=== PATIENT | female | born 1980 | race Caucasian/White ===

== ENCOUNTER 2020-02-14 17:32 | Outpatient (REF) | payer MEDICAID, SELFPAY | END 2020-02-14 17:33 | disposition home or self-care (01) | LOC: HO.LAB 17:32 | PROVIDERS: PCP Registered Nurse; Visit Provider Internal Medicine | DX: Z20.828 Contact with and (suspected) exposure to other viral communicable diseases (principal) | CPT/HCPCS: C9803; U0003 ==

== ENCOUNTER → 2020-06-17 10:48 | Outpatient (BNVA) | payer MEDICAID, SELFPAY | PROVIDERS: Visit Provider Advanced Practice Midwife ==

== ENCOUNTER 2020-07-02 13:26 | Emergency (ER) | payer MEDICAID, SELFPAY ==
--- NOTE | ~2020-07-02 | CT_ITS ---
EXAMINATION: CT ABDOMEN AND PELVIS WITHOUT CONTRAST CLINICAL INFORMATION: Left flank pain COMPARISON: Previous CT of the abdomen and pelvis June 2015 TECHNIQUE: Multidetector volumetric imaging was performed from the superior aspect of the liver through the pubic symphysis. Sagittal and coronal reformatted images were obtained on the technologist's workstation. This CT examination was performed using dose optimization techniques as appropriate, variously including the following: *Automated exposure control *Adjustment of mA and/or kV according to patient size (this includes techniques or standardized protocols for targeted exams where dose is matched to indication/reason for exam; i.e. extremities or head) *Use of iterative reconstruction technique DLP: 311 mGy-cm FINDINGS: LUNG BASES: The visualized lung bases are unremarkable. LIVER, GALLBLADDER, AND BILIARY TREE: The liver is normal in size, shape, and attenuation. No focal hepatic lesion or biliary ductal dilatation is present. The gallbladder is unremarkable with no evidence of radiopaque gallstones, gallbladder wall thickening, or obvious pericholecystic inflammatory changes. PANCREAS: Unremarkable. SPLEEN: Unremarkable. ADRENAL GLANDS: Unremarkable. KIDNEYS AND URETERS: The kidneys are normal in size, shape, and attenuation. No hydronephrosis, hydroureter, or calculi seen. No perinephric stranding. BLADDER: Unremarkable. GASTROINTESTINAL TRACT: The cecum is located in the right pelvis. The small and large bowel are otherwise unremarkable. The appendix is unremarkable. The stomach is unremarkable. ABDOMINAL WALL: There is a small umbilical hernia containing fat. There are postsurgical changes to the lower abdominal wall. LYMPH NODES: Normal. VASCULAR: Unremarkable. PELVIC VISCERA: The uterus has been removed. There is a 4.8 x 4.7 x 5 cm slightly complex left ovarian cyst with septation. This is new from 2016 exam. This probably represents a left ovarian cyst. OSSEOUS STRUCTURES: Unremarkable. CT/CT abdomen pelvis wo con IMPRESSION: 4.7 x 4.8 x 5 cm slightly complex left ovarian cyst. Normal-appearing kidneys. No stone or hydronephrosis.
[2020-07-02 13:49] VITALS: BP 110/61; PULSE 75; RESP 18; TEMP 37.2; O2SAT 97; BMI 20.5
[2020-07-02 14:12] LABS: Glucose Urine UA NEG (NEG); Leukocyte Esterase Urine NEG (NEG); Nitrite Urine NEG (NEG); Specific Gravity - Urine 1.025 (1.005-1.025); Urine Blood 1+ (NEG); Urine Ketones NEG (NEG); Urine Protein NEG (NEG-TRACE)
[2020-07-02 14:15] LABS: Appearance Urine CLEAR; Color Urine YELLOW
[2020-07-02 14:26] LABS: Bacteria Urine TRACE /LPF; Mucus Urine TRACE /LPF; RBC Urine 0-2 /HPF (0); Squamous Epithelial Cell Urine TRACE /LPF; WBC Urine 0-2 /HPF (0-4)
[2020-07-02 15:19] LABS: MANUAL DIFF FLAG NO
[2020-07-02 15:22] LABS: Basophils Absolute Auto 0.1 X10*3/uL (0.0-0.2); Basophils Percent Auto 0.6 % (0-2); Eosinophils Absolute Auto 0.4 X10*3/uL (0.0-0.4); Eosinophils Percent Auto 4.5 % (0-4); Hematocrit 40.4 % (37-47); Imm Gran Abs Auto 0.02 X10*3/uL (0.00-0.03); Imm Gran Pct Auto 0.3 % (0.0-0.4); Lymphocytes Absolute Auto 2.3 X10*3/uL (1.2-4.9); Lymphocytes Percent Auto 29.9 % (20-40); Mean Corpuscular HGB Conc 32.2 g/dl (31.0-35.0); Mean Corpuscular Hemoglobin 26.9 pg (27.0-33.0); Mean Corpuscular Volume 83.5 fL (80-98); Mean Platelet Volume 9.2 fL (9.4-12.3); Monocytes Absolute Auto 0.5 X10*3/uL (0.1-1.2); Monocytes Percent Auto 6.3 % (2-11); Neutrophils Absolute Auto 4.5 X10*3/uL (2.0-8.3); Neutrophils Percent Auto 58.4 % (45-73); Platelet Count 313 X10*3/uL (160-400); Red Blood Count 4.84 X10*6/uL (4.20-5.50); Red Cell Distribution Width 12.9 % (11.0-16.0); White Blood Count 7.8 X10*3/uL (4.8-10.8)
[2020-07-02 15:49] LABS: Anion Gap 13 (12-20); Blood Urea Nitrogen 11 mg/dL (9-16); Calcium 9.4 mg/dL (8.4-10.2); Carbon Dioxide 27 mmol/L (22-29); Chloride 102 mmol/L (96-108); Creatinine Clr Calc Pharmacy 77.9; Estimated Glomerular Filt Rate > 60; Glucose Random 86 mg/dL (60-115); Potassium 4.2 mmol/L (3.3-5.1); Sodium 138 mmol/L (135-145)
[2020-07-02 16:00] VITALS: BP 97/48; PULSE 72; RESP 18; O2SAT 99
--- NOTE | 2020-07-02 16:08 | ED.FEMALEGU ---
HPI - Female Genitourinary General Chief complaint: Urogenital-Female Stated complaint: abd pain Time Seen by Provider: 07/02/20 16:08 Source: patient Mode of arrival: ambulatory Limitations: no limitations History of Present Illness HPI Narrative: Pelvic pain with pain to left flank, urinary frequency. White discharge a week ago. No recent abx, patient has had recent yeast infections. Patient has a history of hysterectomy and right oophorectomy. MD elicited complaint: dysuria, UTI and flank pain Onset (ago): day(s) Severity: mild Quality of pain: cramping Consistency: intermittent Vaginal discharge: none Vaginal bleeding: none Urinary symptoms: Dysuria, Urgency and Frequency Related Data Previous Rx's Medication Instructions Recorded naproxen [Naprosyn] 500 mg PO BID #20 tab 07/02/20 Allergies Allergy/AdvReac Type Severity Reaction Status Date / Time morphine [MORPHINE] Allergy Unknown HIVES Verified 06/17/20 11:13 Review of Systems Constitutional: Constitutional: Reports no additional constitutional complaints Eyes: Eyes: Reports no additional eye complaints ENT: Denies dizziness Cardiovascular: Cardiovascular: Reports no additional cardiovascular complaints Respiratory: Respiratory: Reports as per HPI Gastrointestinal: Gastrointestinal: Reports no additional gastrointestinal complaints Genitourinary: Genitourinary: Reports no additional female genitourinary complaints Musculoskeletal: Musculoskeletal: Reports no additional musculoskeletal complaints Integumentary/Breasts: Skin/Breast: Denies rash Neurologic: Reports system reviewed and no additional complaints, except as documented, Denies dizziness and Denies Sensory deficit (Neuro) Psychiatric: Psychiatric: Denies anxiety PMFSH Past Medical History Medical History Abnormal Pap smear of cervix History of anxiety Surgical History History of total abdominal hysterectomy Hx of section Family History Family History Maternal Grandfather Colon cancer Social History Social History Alcohol intake: never Smoking Status: Current every day smoker Cigarettes Per Day: 4 Smoked in Last 30 Days: No Use of substances other than those prescribed or required for medical reasons: No Any prior treatment program specific to substance use: No Advance Directives: No Advance Directives Information Provided: Yes Physical Exam Vital Signs: Vital Signs: Last Vital Signs Temp 99.0 F 07/02/20 13:49 Pulse 72 07/02/20 17:40 Resp 16 07/02/20 17:40 BP 97/48 L 07/02/20 17:40 Pulse Ox 100 07/02/20 17:40 Body Mass Index 20.5 Const: General: healthy appearing Nutritional Appearance: average body habitus Orientation/consciousness: oriented to person and patient oriented x3 Limitations: no limitations HENMT: Head: Yes normal to inspection Ears: external ears normal General nose exam: Normal external nose present Mouth: Normal oral and palatal mucosa present and oropharynx normal Throat: Yes posterior oropharynx normal Eyes: General: appearance normal, both eyes and all related structures Neck: Other: supple Neck: Yes normal visual inspection Chest: Chest palpation & inspection: normal inspection of the chest Resp: Auscultation: clear to auscultation bilaterally Cardio: Jugular venous distension: no JVD Rate: regular rate Rhythm: regular rhythm Heart sounds: S1 normal heart sound present and S2 normal heart sound present GI: Other: minor left lower abdominal pain Inspection: Yes normal to inspection Palpation (GI): Soft to palpation and No hepatosplenomegaly present Auscultation: normal bowel sounds Back/Spine/Pelvis: Other: left CVAT tenderness Skin: General skin exam: no rashes or lesions noted Neuro: General: oriented to person and patient oriented x3 Cranial nerves: Yes CN's II-XII intact bilaterally Motor exam (neuro): 5/5 motor strength present throughout Sensory Exam: No Sensory deficit (Neuro) Extrem: General: Yes normal to inspection Psych: Appearance: grossly normal Course Course Course Narrative: Patient with complex left ovarian cyst will refer to her apartment rental clerk. MDM - Female Genitourinary MDM Narrative Medical decision making narrative: renal colic also considered. UA essentially normal, however CT abd/pelvis revealed complex left ovarian cyst. Differential Diagnosis Differential diagnosis: Likely urinary tract infection, ovarian cyst and cystitis Lab Data Result diagrams: 07/02/20 15:14 07/02/20 15:14 Labs: Lab Results 07/02/20 07/02/20 07/02/20 Range/Units 14:01 14:01 15:14 WBC 7.8 (4.8-10.8) X10*3/uL RBC 4.84 (4.20-5.50) X10*6/uL Hgb 13.0 (12.0-16.0) g/dl Hct 40.4 (37-47) % MCV 83.5 (80-98) fL MCH 26.9 L (27.0-33.0) pg MCHC 32.2 (31.0-35.0) g/dl RDW 12.9 (11.0-16.0) % Plt Count 313 (160-400) X10*3/uL MPV 9.2 L (9.4-12.3) fL Immature Gran % (Auto) 0.3 (0.0-0.4) % Neut % (Auto) 58.4 (45-73) % Lymph % (Auto) 29.9 (20-40) % [place] % (Auto) 6.3 (2-11) % Eos % (Auto) 4.5 H (0-4) % Baso % (Auto) 0.6 (0-2) % Lymph # (Auto) 2.3 (1.2-4.9) X10*3/uL [place] # (Auto) 0.5 (0.1-1.2) X10*3/uL Eos # (Auto) 0.4 (0.0-0.4) X10*3/uL Baso # (Auto) 0.1 (0.0-0.2) X10*3/uL Abs Immat Gran (auto) 0.02 (0.00-0.03) X10*3/uL Absolute Neuts (auto) 4.5 (2.0-8.3) X10*3/uL Absolute Nucleated RBC 0.000 (0.0-0.012) X10*3/uL Nucleated RBC % (auto) 0.0 (0.0-0.2) /100WBC Sodium (135-145) mmol/L Potassium (3.3-5.1) mmol/L Chloride (96-108) mmol/L Carbon Dioxide (22-29) mmol/L Anion Gap (12-20) BUN (9-16) mg/dL Creatinine (0.5-1.4) mg/dL Estim Creat Clear Calc Estimated GFR Random Glucose (60-115) mg/dL Calcium (8.4-10.2) mg/dL Urine Color YELLOW Urine Appearance CLEAR Urine pH 6.0 (5.0-8.0) Ur Specific Sulphur 1.025 (1.005-1.025) Urine Protein NEG (NEG-TRACE) MG/DL Urine Glucose (UA) NEG (NEG) MG/DL Urine Ketones NEG (NEG) MG/DL Urine Blood 1+ H (NEG) Urine Nitrite NEG (NEG) Ur Leukocyte Esterase NEG (NEG) Urine RBC 0-2 (0) /HPF Urine WBC 0-2 (0-4) /HPF Ur Squamous Epith Cells TRACE /LPF Urine Bacteria TRACE /LPF Urine Mucus TRACE /LPF Urine Test NEGATIVE (NEGATIVE) 07/02/20 Range/Units 15:14 WBC (4.8-10.8) X10*3/uL RBC (4.20-5.50) X10*6/uL Hgb (12.0-16.0) g/dl Hct (37-47) % MCV (80-98) fL MCH (27.0-33.0) pg MCHC (31.0-35.0) g/dl RDW (11.0-16.0) % Plt Count (160-400) X10*3/uL MPV (9.4-12.3) fL Immature Gran % (Auto) (0.0-0.4) % Neut % (Auto) (45-73) % Lymph % (Auto) (20-40) % [place] % (Auto) (2-11) % Eos % (Auto) (0-4) % Baso % (Auto) (0-2) % Lymph # (Auto) (1.2-4.9) X10*3/uL [place] # (Auto) (0.1-1.2) X10*3/uL Eos # (Auto) (0.0-0.4) X10*3/uL Baso # (Auto) (0.0-0.2) X10*3/uL Abs Immat Gran (auto) (0.00-0.03) X10*3/uL Absolute Neuts (auto) (2.0-8.3) X10*3/uL Absolute Nucleated RBC (0.0-0.012) X10*3/uL Nucleated RBC % (auto) (0.0-0.2) /100WBC Sodium 138 (135-145) mmol/L Potassium 4.2 (3.3-5.1) mmol/L Chloride 102 (96-108) mmol/L Carbon Dioxide 27 (22-29) mmol/L Anion Gap 13 (12-20) BUN 11 (9-16) mg/dL Creatinine 0.71 (0.5-1.4) mg/dL Estim Creat Clear Calc 77.9 Estimated GFR > 60 Random Glucose 86 (60-115) mg/dL Calcium 9.4 (8.4-10.2) mg/dL Urine Color Urine Appearance Urine pH (5.0-8.0) Ur Specific Sulph[place] (1.005-1.025) Urine Protein (NEG-TRACE) MG/DL Urine Glucose (UA) (NEG) MG/DL Urine Ketones (NEG) MG/DL Urine Blood (NEG) Urine Nitrite (NEG) Ur Leukocyte Esterase (NEG) Urine RBC (0) /HPF Urine WBC (0-4) /HPF Ur Squamous Epith Cells /LPF Urine Bacteria /LPF Urine Mucus /LPF Urine Test (NEGATIVE) Imaging Data CT scan - abdomen: Radiologist's impression: complex ovarian cyst Discharge Plan Discharge Clinical Impression: Complex cyst of left ovary Patient Disposition: Home, Self-Care Instructions: Ovarian Cyst (ED) Prescriptions: New naproxen [Naprosyn] 500 mg tablet 500 mg PO BID Qty: 20 RF: 0 Referrals: Physician,Unknown [Physician] - 2 days (must see your apartment rental clerk this week for ovarian cyst)
[2020-07-02 16:16] LABS: UPreg QC Valid YES; Urine Pregnancy NEGATIVE (NEGATIVE)
[2020-07-02] MEDS: Ketorolac Tromethamine 60 MG/2 ML VIAL IM (16:33)
[2020-07-02 17:40] VITALS: BP 97/48; PULSE 72; RESP 16; O2SAT 100
[2020-07-02] MEDS: Fluconazole 150 MG TABLET PO (18:42)
== END 2020-07-02 18:43 | disposition home or self-care (01) ==
PROVIDERS: Emergency Provider Emergency Medicine
DX: N83.292 Other ovarian cyst, left side (principal); R10.2 Pelvic and perineal pain
CPT/HCPCS: 36415; 74176; 80048; 81001; 81025; 85025; 96372; 99284; J1885

== ENCOUNTER 2021-01-11 16:47 | Emergency (ER) | payer MEDICAID, SELFPAY ==
--- NOTE | ~2021-01-11 | XR_ITS ---
EXAMINATION: XR CHEST CLINICAL INFORMATION: Shortness of breath. COMPARISON: No similar priors. TECHNIQUE: AP view of the chest was obtained. FINDINGS: No significant abnormality is noted involving the heart, lungs, mediastinum, bony thorax or soft tissues. XR/XR chest 1V IMPRESSION: No acute cardiopulmonary findings.
[2021-01-11 18:26] VITALS: BP 100/64; PULSE 75; RESP 16; TEMP 36.7; O2SAT 100
[2021-01-11 18:30] VITALS: BMI 26.2
--- NOTE | 2021-01-11 19:04 | ED_ITS ---
HPI - URI/Sore Throat General Chief Complaint: Upper Respiratory Symptoms Stated Complaint: covid + Time Seen by Provider: 01/11/21 19:04 History of Present Illness HPI Narrative: Patient is a 32-year-old female presented with coughing upper respiratory symptoms ongoing for about 10 days. She has tested positive for COVID approximately 7 days prior. She received her vaccine x2 over 2 weeks ago. Positive generalized malaise weakness. Patient from home. No significant past medical history. Related Data Previous Rx's Medication Instructions Recorded naproxen 500 mg tablet (Naprosyn) 500 mg PO BID #20 tab 07/02/20 Allergies Allergy/AdvReac Type Severity Reaction Status Date / Time morphine [MORPHINE] Allergy Unknown HIVES Verified 06/17/20 11:13 naproxen Allergy Unknown Verified 01/11/21 18:30 Review of Systems Review of Systems: Positive coughing upper respiratory symptoms Positive generalized malaise Yes all other systems are reviewed and are negative PMFSH Past Medical History Attestation statement: The following information was validated with the patient. Medical History Abnormal Pap smear of cervix History of anxiety Surgical History History of total abdominal hysterectomy Hx of section Family History Family History Maternal Grandfather Colon cancer Social History Social History Alcohol intake: never Cigarettes Per Day: 4 Advance Directives: No Advance Directives Information Provided: No Physical Exam Vital Signs: Vital Signs: Last Vital Signs Temp 98.1 F 01/11/21 18:26 Pulse 75 01/11/21 18:26 Resp 16 01/11/21 18:26 BP 100/64 01/11/21 18:26 Pulse Ox 100 01/11/21 18:26 Body Mass Index 26.2 Appearance: Alert. Oriented X3. No acute distress. Eyes: Pupils equal, round and reactive to light. ENT: Pharynx normal. Neck: Normal inspection. Neck supple. No lymph nodes noted. No crepitus CVS: Normal heart rate and rhythm. Pulses normal. Normal S1 and S2 Respiratory: No respiratory distress. Breath sounds normal. No Wheezing. No rales Abdomen: Soft and nontender. No rigidity. No distention. good BS x4 Skin: Skin warm and dry. Normal skin color. Normal skin turgor. Extremities: No lower extremity edema. Neurovascular intact to all extremities. No Lacerations. No Rash Neuro: Oriented X 3. No motor deficit. No sensory deficit. Moving all extermities. No slurred speech MDM - URI/Sore Throat MDM Narrative Medical decision making narrative: Chest x-ray was negative O2 sat 100% on room air. No distress. Patient tested positive COVID explained to patient in need for follow-up on an outpatient basis. Home quarantine until symptoms resolve. She is currently in stable condition with discharge home. Medical Records Attestation: I reviewed the patient's medical records. Discharge Plan Discharge Clinical Impression: COVID-19 Patient Disposition: Home, Self-Care Instructions: COVID-19 (Coronavirus Disease 2019) (ED) Additional Instructions: Home quarantine into all symptom has resolved. No fever for at least 24-48 hours per Prescriptions: No Action naproxen [Naprosyn] 500 mg tablet 500 mg PO BID Qty: 20 RF: 0 Referrals: [facility] [Primary Care Provider] - 2 days Print Language: Tajik
== END 2021-01-11 19:44 | disposition home or self-care (01) ==
PROVIDERS: Emergency Provider Emergency Medicine Emergency Medical Services
DX: U07.1 COVID-19 (principal); F17.210 Nicotine dependence, cigarettes, uncomplicated; Z71.6 Tobacco abuse counseling; Z79.899 Other long term (current) drug therapy
CPT/HCPCS: 71045; 99282; 99283

== ENCOUNTER 2021-01-29 11:35 | Emergency (ER) | payer MEDICAID, SELFPAY ==
[2021-01-29 13:53] VITALS: BP 130/68; PULSE 73; RESP 16; TEMP 36.8; O2SAT 98; BMI 26.2
--- NOTE | 2021-01-29 14:15 | ED_ITS ---
HPI - General Adult General Chief complaint: Upper Respiratory Symptoms Stated complaint: SOB/fatigue Time Seen by Provider: 01/29/21 14:15 Source: patient Limitations: no limitations History of Present Illness HPI narrative: Patient presents with sinus pressure congestion sore throat and slight cough over the past few days. Patient had COVID-19 approximately 1 month prior has systems negative x2 since. Patient has also been fully vaccinated for COVID-19. Sinus pressure congestion nasal discharge has been noted. Positive headache associated with symptoms. Pain 5/10. patient denies smoking history. No other complaints at this time . Related Data Previous Rx's Medication Instructions Recorded naproxen 500 mg tablet (Naprosyn) 500 mg PO BID #20 tab 07/02/20 azithromycin 250 mg tablet See Rx Instructions .ROUTE 01/29/21 (Zithromax) .COMPLEX #6 tab Allergies Allergy/AdvReac Type Severity Reaction Status Date / Time morphine [MORPHINE] Allergy Unknown HIVES Verified 06/17/20 11:13 naproxen Allergy Unknown Verified 01/11/21 18:30 Review of Systems Constitutional: Constitutional: Denies chills, Denies fever(s), Reports headache(s) and Denies weakness ENT: Reports headache(s), Reports nasal congestion, Reports nasal discharge and Reports sore throat Cardiovascular: Cardiovascular: Denies chest pain and Denies dyspnea Respiratory: Respiratory: Reports cough and Denies dyspnea Gastrointestinal: Gastrointestinal: Denies nausea and Denies vomiting Musculoskeletal: Musculoskeletal: Denies back pain Neurologic: Reports headache(s) and Denies weakness PMFSH Past Medical History Attestation statement: The following information was validated with the patient. Source: unable to obtain Medical History Abnormal Pap smear of cervix History of anxiety Surgical History History of total abdominal hysterectomy Hx of section Family History Family History Maternal Grandfather Colon cancer Social History Social History Alcohol intake: never Cigarettes Per Day: 4 Advance Directives: No Advance Directives Information Provided: No Patient : No Physical Exam Vital Signs: Vital Signs: Last Vital Signs Temp 98.3 F 01/29/21 13:53 Pulse 73 01/29/21 13:53 Resp 16 01/29/21 13:53 BP 130/68 01/29/21 13:53 Pulse Ox 98 01/29/21 13:53 Body Mass Index 26.2 vital signs have been reviewed as normal and appeared to be correct. Blood pressure normal. Heart rate normal. Respiration rate normal. Temperature normal. Oxygen saturation normal. Appearance: Alert. Oriented X3. No acute distress. Head: Normal external exam. Normocephalic. Atraumatic. Eyes: PERRLA. EOMI. Conjunctiva and sclera normal. Eyelids normal. ENT: Pharynx normal. Uvula midline. Moist mucous membranes. No trismus noted. No drooling noted. No muffled voice noted. No evidence of peritonsillar abscess. Sinus pressure discharge positive sinus tenderness. Neck: Soft full range of motion, no JVD CVS: Heart regular rate and rhythm no murmurs and rubs Respiratory: Breath sounds are clear to auscultation bilaterally. No accessory muscle use noted. Back: No CVA tenderness. Full range of motion noted. Skin: Skin warm and dry. Normal skin color. Normal skin turgor. No rashes/lesions/lacerations noted. Extremities: No lower extremity edema. Extremities exhibit normal range of motion. Extremities nontender. Neuro: Oriented X 3. No motor deficit. No sensory deficit. Reflexes normal. Course Course Course Narrative: Acute bronchitis Sinusitis Acute pharyngitis Peritonsillar abscess Viral syndrome Patient has had 2-COVID-19 tests since her diagnosis proximally 1 month ago patient is fully vaccinated this time symptoms consistent sinusitis positive sinus pressure and nasal discharge will treat accordingly Discharge Plan Discharge Clinical Impression: Sinusitis Patient Disposition: Home, Self-Care Instructions: Sinusitis (ED) Additional Instructions: Increase fluids rest Tylenol Motrin for fever or pain Antibiotics as directed. Symptoms are consistent with sinusitis Prescriptions: New azithromycin [Zithromax] 250 mg tablet See Rx Instructions .ROUTE .COMPLEX Qty: 6 RF: 0 No Action naproxen [Naprosyn] 500 mg tablet 500 mg PO BID Qty: 20 RF: 0 Print Language: [place]
== END 2021-01-29 15:13 | disposition home or self-care (01) ==
LOC: HO.ED 14:35
PROVIDERS: Emergency Provider Emergency Medicine Emergency Medical Services
DX: J32.9 Chronic sinusitis, unspecified (principal); R06.02 Shortness of breath; R50.9 Fever, unspecified; F17.210 Nicotine dependence, cigarettes, uncomplicated; Z71.6 Tobacco abuse counseling; Z79.899 Other long term (current) drug therapy
CPT/HCPCS: 99283

== ENCOUNTER 2021-02-03 12:54 | Outpatient (REF) | payer MEDICAID, SELFPAY ==
--- NOTE | ~2021-02-03 | XR_ITS ---
EXAMINATION: XR CHEST 2 VIEWS CLINICAL INFORMATION: Cough, shortness of breath and acute lower respiratory infection. COMPARISON: Prior chest radiographs dated 01/11/2021. TECHNIQUE: Frontal and lateral views of the chest were obtained. FINDINGS: The heart, great vessels, pulmonary vasculature and mediastinum are normal. The lungs show no focal infiltrate, effusion or pneumothorax. There is no acute osseous abnormality. XR/XR chest 2V IMPRESSION: No active cardiopulmonary disease.
== END 2021-02-03 12:55 | disposition home or self-care (01) ==
LOC: HO.XRAY 12:54
PROVIDERS: Absent Provider Registered Nurse; PCP Registered Nurse; Visit Provider Emergency Medicine
DX: J22 Unspecified acute lower respiratory infection (principal); R05.9 Cough, unspecified; R06.02 Shortness of breath
CPT/HCPCS: 71046

== ENCOUNTER 2021-02-22 22:21 | Emergency (ER) | payer MEDICAID, SELFPAY ==
--- NOTE | ~2021-02-22 | CT_ITS ---
EXAMINATION: CT CHEST WITH CONTRAST CLINICAL INFORMATION: Shortness of breath. History of Covid 19 COMPARISON: No prior chest CT. Radiograph 02/22/2021. TECHNIQUE: Multidetector volumetric CT imaging of the chest was obtained after the administration of 65 mL of Omnipaque 350 intravenous contrast without immediate adverse reactions. Axial MIP volume rendering provided. Sagittal and coronal reformatted images were obtained. This CT examination was performed using dose optimization techniques as appropriate, variously including the following: *Automated exposure control *Adjustment of mA and/or kV according to patient size (this includes techniques or standardized protocols for targeted exams where dose is matched to indication/reason for exam; i.e. extremities or head) *Use of iterative reconstruction technique DLP: 151 mGy-cm FINDINGS: LUNGS: The central airways are patent. Bronchial wall thickening. No dense consolidation. No pneumothorax. No suspicious pulmonary nodule identified. MEDIASTINUM: Normal heart size. No pericardial effusion. No mediastinal lymphadenopathy. The visualized thyroid gland is unremarkable. PLEURA: There is no pleural effusion. No pleural mass or thickening. AXILLA: No lymphadenopathy. UPPER ABDOMEN: Unremarkable OSSEOUS STRUCTURES: Unremarkable. CT/CT chest w con IMPRESSION: No consolidation. Bronchial wall thickening can be seen with a small airways process such as asthma or atypical/viral infection.
--- NOTE | ~2021-02-22 | XR_ITS ---
EXAMINATION: XR CHEST CLINICAL INFORMATION: Shortness of breath. COMPARISON: 02/03/2021 chest radiographs. TECHNIQUE: Frontal view of the chest was obtained. FINDINGS: No significant abnormality is noted involving the heart, lungs, mediastinum, bony thorax or soft tissues. XR/XR chest 1V IMPRESSION: No acute cardiopulmonary process.
--- NOTE | ~2021-02-22 | XR_ITS ---
EXAMINATION: XR CHEST CLINICAL INFORMATION: Shortness of breath COMPARISON: 02/22/2021 TECHNIQUE: Frontal view of the chest was obtained. FINDINGS: Cardiac leads overlie the chest. The lungs are well expanded. There is no focal consolidation, edema, or effusion. No pneumothorax. The cardiomediastinal silhouette is within normal limits. No acute osseous abnormality. XR/XR chest 1V IMPRESSION: Clear lungs.
[2021-02-22 22:24] VITALS: BP 116/68; PULSE 96; RESP 22; TEMP 36.8; O2SAT 97; BMI 21.9
[2021-02-22 23:14] LABS: Influenza A PCR NEGATIVE (Negative); Influenza B PCR NEGATIVE (Negative); Resp Syncy Virus RNA Qual PCR NEGATIVE (Negative); SARS COV2 PCR INHOUSE NEGATIVE (Negative)
--- NOTE | 2021-02-22 23:42 | ED.SOB ---
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 asthma. She has been provided an albuterol inhaler as well as a course of steroids twice and patient states that she really has not gotten any relief from this treatment plan. She states she continues to have cough with wheezing as well as feeling short of breath and sinus problems. She denies any fevers or chills but states she intermittently gets headache and that she has been coughing so much that her chest hurts. Patient is status post hysterectomy. Related Data Previous Rx's Medication Instructions Recorded naproxen 500 mg tablet (Naprosyn) 500 mg PO BID #20 tab 07/02/20 azithromycin 250 mg tablet See Rx Instructions .ROUTE 01/29/21 (Zithromax) .COMPLEX #6 tab benzonatate 100 mg capsule 100 mg PO TID PRN #10 cap 02/23/21 prednisone 20 mg tablet 40 mg PO DAILY 4 Days #8 tab 02/23/21 Allergies Allergy/AdvReac Type Severity Reaction Status Date / Time morphine [MORPHINE] Allergy Unknown HIVES Verified 06/17/20 11:13 naproxen Allergy Unknown Verified 01/11/21 18:30 Review of Systems Review of Systems: Pertinent positives and negatives as stated in HPI 10 point review of systems is otherwise negative. [facility] Past Medical History Source: nursing notes reviewed Medical History Abnormal Pap smear of cervix History of anxiety Surgical History History of total abdominal hysterectomy Hx of section Family History Family History Maternal Grandfather Colon cancer Social History Social History Alcohol intake: never Cigarettes Per Day: 4 Advance Directives: No Physical Exam Vital Signs: Vital Signs: Last Vital Signs Temp 98.3 F 02/22/21 22:24 Pulse 84 02/22/21 23:49 Resp 20 02/22/21 23:49 BP 120/73 02/22/21 23:49 Pulse Ox 98 02/22/21 23:49 Body Mass Index 21.9 VITAL SIGNS: Reviewed. GENERAL: Well developed, well nourished, in no acute distress. HEAD: Normocephalic/atraumatic EYES: PERRLA, EOMI EARS: Ext canals without abnormality, TMs non-bulging and non-erythematous NOSE: Nares patent bilateral OROPHARYNX: no oral lesions noted, posterior pharynx clear and non-erythematous without noted tonsillar enlargement/erythema/exudates NECK: Supple, no adenopathy LUNGS: Some difficulty with good inspiratory effort given cough, patient is tachypneic, with retractions and bilateral coarse breath sounds with mild expiratory wheeze. SpO2<97> CARDIOVASCULAR: Regular rate and rhythm without noted murmurs ABDOMEN: Soft, non-tender, non-distended with bowel sounds. SKIN: Inspection of the skin reveals no rashes NEUROLOGIC: Alert and oriented x 4. Course Course Course Narrative: 40-year-old female with history and clinical presentation suggestive of COVID-19 sequela of developing lung disease, however there is also a component of anxiety. Review of all investigations significant for eosinophilia -11.2 but otherwise no acute findings and this includes a CT scan of the chest with IV contrast. Although the CT scan does show thickening consistent with patient's current working diagnosis of asthma. On re-evaluation patient has had complete resolution of her wheezing, tachypnea after receiving 1 hour long albuterol treatment in conjunction with Benadryl and steroids. After noting the eosinophilia, suspect that the Benadryl may have been the major factor in resolution. Patient was instructed to continue using her albuterol inhaler every 4 hours, and that she would be provided with a prescription for steroids/Tessalon Perles and that she should take Benadryl at night before going to sleep. In addition, she should follow-up with her primary care provider in the morning for re-evaluation and further outpatient management. MDM - SOB/Dyspnea Lab Data Result diagrams: 02/23/21 00:01 02/23/21 00:01 Labs: Lab Results 02/22/21 02/23/21 02/23/21 Range/Units 22:31 00:01 00:01 WBC 8.5 (4.8-10.8) X10*3/uL RBC 4.81 (4.20-5.50) X10*6/uL Hgb 13.3 (12.0-16.0) g/dl Hct 40.4 (37.0-47.0) % MCV 84.0 (80.0-98.0) fL MCH 27.7 (27.0-33.0) pg MCHC 32.9 (31.0-35.0) g/dl RDW 13.2 (11.0-16.0) % Plt Count 324 (160-400) X10*3/uL MPV 9.2 L (9.4-12.3) fL Immature Gran % (Auto) 0.2 (0.0-0.4) % Neut % (Auto) 43.9 L (45-73) % Lymph % (Auto) 37.9 (20-40) % [place] % (Auto) 6.1 (2-11) % Eos % (Auto) 11.2 H (0-4) % Baso % (Auto) 0.7 (0-2) % Lymph # (Auto) 3.2 (1.2-4.9) X10*3/uL [place] # (Auto) 0.5 (0.1-1.2) X10*3/uL Eos # (Auto) 1.0 H (0.0-0.4) X10*3/uL Baso # (Auto) 0.1 (0.0-0.2) X10*3/uL Abs Immat Gran (auto) 0.02 (0.00-0.03) X10*3/uL Absolute Neuts (auto) 3.7 (2.0-8.3) x10*3/uL Absolute Nucleated RBC 0.000 (0.0-0.012) X10*3/uL Nucleated RBC % (auto) 0.0 (0.0-0.2) /100WBC D-Dimer NG/ML Coag Specimen Comment Sodium 141 (135-145) mmol/L Potassium 4.5 (3.3-5.1) mmol/L Chloride 107 (96-108) mmol/L Carbon Dioxide 27 (22-29) mmol/L Anion Gap 12 (12-20) BUN 15 (9-16) mg/dL Creatinine 0.79 (0.5-1.4) mg/dL Estim Creat Clear Calc 62.3 Estimated GFR > 60 Random Glucose 94 (60-115) mg/dL Calcium 9.1 (8.4-10.2) mg/dL Total Bilirubin 0.3 (0.0-1.0) mg/dL AST 23 (5-31) U/L ALT 36 H (0-31) U/L Alkaline Phosphatase 94 (39-117) U/L Total Protein 7.3 (6.5-8.0) g/dL Albumin 4.2 (3.5-5.0) g/dL Influenza Type A (PCR) NEGATIVE (Negative) Influenza Type B (PCR) NEGATIVE (Negative) RSV RNA Qual (PCR) NEGATIVE (Negative) SARS-CoV-2 RNA (RT-PCR) NEGATIVE (Negative) 02/23/21 Range/Units 00:01 WBC (4.8-10.8) X10*3/uL RBC (4.20-5.50) X10*6/uL Hgb (12.0-16.0) g/dl Hct (37.0-47.0) % MCV (80.0-98.0) fL MCH (27.0-33.0) pg MCHC (31.0-35.0) g/dl RDW (11.0-16.0) % Plt Count (160-400) X10*3/uL MPV (9.4-12.3) fL Immature Gran % (Auto) (0.0-0.4) % Neut % (Auto) (45-73) % Lymph % (Auto) (20-40) % [place] % (Auto) (2-11) % Eos % (Auto) (0-4) % Baso % (Auto) (0-2) % Lymph # (Auto) (1.2-4.9) X10*3/uL [place] # (Auto) (0.1-1.2) X10*3/uL Eos # (Auto) (0.0-0.4) X10*3/uL Baso # (Auto) (0.0-0.2) X10*3/uL Abs Immat Gran (auto) (0.00-0.03) X10*3/uL Absolute Neuts (auto) (2.0-8.3) x10*3/uL Absolute Nucleated RBC (0.0-0.012) X10*3/uL Nucleated RBC % (auto) (0.0-0.2) /100WBC D-Dimer 238 NG/ML Coag Specimen Comment DELAY Sodium (135-145) mmol/L Potassium (3.3-5.1) mmol/L Chloride (96-108) mmol/L Carbon Dioxide (22-29) mmol/L Anion Gap (12-20) BUN (9-16) mg/dL Creatinine (0.5-1.4) mg/dL Estim Creat Clear Calc Estimated GFR Random Glucose (60-115) mg/dL Calcium (8.4-10.2) mg/dL Total Bilirubin (0.0-1.0) mg/dL AST (5-31) U/L ALT (0-31) U/L Alkaline Phosphatase (39-117) U/L Total Protein (6.5-8.0) g/dL Albumin (3.5-5.0) g/dL Influenza Type A (PCR) (Negative) Influenza Type B (PCR) (Negative) RSV RNA Qual (PCR) (Negative) SARS-CoV-2 RNA (RT-PCR) (Negative) Discharge Plan Discharge Clinical Impression: Asthma exacerbation, Eosinophilia Patient Disposition: Home, Self-Care Instructions: Benzonatate (By mouth), Asthma (ED) Additional Instructions: 1. Contin?e usando liao inhalador de albuterol, 2 inhalaciones, cada 4 horas mientras est? despierto ari las pr?ximas 24 a 48 horas. 2. [place] Benadryl por la noche antes de irse a dormir hasta que lo eval?e liao proveedor de atenci?n primaria. 3. [place] liao Tessalon Perles para la tos seg?n las indicaciones y complete el ciclo de esteroides. 4. Realice un seguimiento con liao proveedor de atenci?n primaria por la ma?robert y analice la posibilidad de rusty derivaci?n adicional a un neum?logo. Regrese a la candice de emergencias si jenny s?ntomas empeoran. Prescriptions: New benzonatate 100 mg capsule 100 mg PO TID PRN (Reason: cough) Qty: 10 RF: 0 prednisone 20 mg tablet 40 mg PO DAILY 4 Days Qty: 8 RF: 0 No Action naproxen [Naprosyn] 500 mg tablet 500 mg PO BID Qty: 20 RF: 0 azithromycin [Zithromax] 250 mg tablet See Rx Instructions .ROUTE .COMPLEX Qty: 6 RF: 0 Referrals: Dawn Adhikari FNP [Primary Care Provider] - 2 days Print Language: Estonian
[2021-02-22 23:49] VITALS: BP 120/73; PULSE 84; RESP 20; O2SAT 98
[2021-02-23] MEDS: Albuterol Sulfate (0.083%) 2.5 MG/3 ML VIAL.NEB 10 MG INHALE (00:10)
[2021-02-23] MEDS: methylPREDNISolone Sod Succ 125 MG/2 ML VIAL IVPUSH (00:10)
[2021-02-23 00:14] LABS: MANUAL DIFF FLAG NO
[2021-02-23] MEDS: Acetaminophen 325 MG TABLET 975 MG PO (00:14)
[2021-02-23] MEDS: diphenhydrAMINE HCL 50 MG/ML VIAL 25 MG IVPUSH (00:15)
[2021-02-23] MEDS: Benzonatate 100 MG CAPSULE 200 MG PO (00:15)
[2021-02-23 00:16] LABS: Basophils Absolute Auto 0.1 X10*3/uL (0.0-0.2); Basophils Percent Auto 0.7 % (0-2); Eosinophils Percent Auto 11.2 % (0-4); Hematocrit 40.4 % (37.0-47.0); Hemoglobin 13.3 g/dl (12.0-16.0); Imm Gran Abs Auto 0.02 X10*3/uL (0.00-0.03); Imm Gran Pct Auto 0.2 % (0.0-0.4); Lymphocytes Absolute Auto 3.2 X10*3/uL (1.2-4.9); Lymphocytes Percent Auto 37.9 % (20-40); Mean Corpuscular HGB Conc 32.9 g/dl (31.0-35.0); Mean Corpuscular Hemoglobin 27.7 pg (27.0-33.0); Mean Platelet Volume 9.2 fL (9.4-12.3); Monocytes Absolute Auto 0.5 X10*3/uL (0.1-1.2); Monocytes Percent Auto 6.1 % (2-11); Neutrophils Absolute Auto 3.7 x10*3/uL (2.0-8.3); Neutrophils Percent Auto 43.9 % (45-73); Platelet Count 324 X10*3/uL (160-400); Red Blood Count 4.81 X10*6/uL (4.20-5.50); Red Cell Distribution Width 13.2 % (11.0-16.0); White Blood Count 8.5 X10*3/uL (4.8-10.8)
[2021-02-23 00:29] LABS: Delay - Coag DELAY
[2021-02-23 00:32] LABS: Alanine Aminotransferase 36 U/L (0-31); Albumin Level 4.2 g/dL (3.5-5.0); Alkaline Phosphatase 94 U/L (39-117); Anion Gap 12 (12-20); Aspartate Amino Transferase 23 U/L (5-31); Bilirubin Total 0.3 mg/dL (0.0-1.0); Blood Urea Nitrogen 15 mg/dL (9-16); Calcium 9.1 mg/dL (8.4-10.2); Carbon Dioxide 27 mmol/L (22-29); Chloride 107 mmol/L (96-108); Creatinine Clr Calc Pharmacy 62.3; Estimated Glomerular Filt Rate > 60; Glucose Random 94 mg/dL (60-115); Potassium 4.5 mmol/L (3.3-5.1); Sodium 141 mmol/L (135-145); Total Protein 7.3 g/dL (6.5-8.0)
[2021-02-23 00:42] LABS: D Dimer 238 NG/ML
--- NOTE | 2021-02-23 01:00 | PC.NURSE ---
PT transported for CT scan.
--- NOTE | 2021-02-23 01:11 | PC.NURSE ---
Pt off to CT on hospital bed. Pt requesting Zofran, states contrast makes her nauseated. agreeable. Pt medicated with Zofran per request.
[2021-02-23] MEDS: ondansetron HCL 4 MG/2 ML VIAL IVPUSH (01:13)
[2021-02-23] MEDS: iohexoL 350 MG/ML 100 ML INFUS..BTL 65 ML IV (01:22)
--- NOTE | 2021-02-23 02:05 | PC.NURSE ---
PT's daughter left contact info. Payton Correa [phone]
[2021-02-23 02:32] VITALS: BP 103/59; PULSE 110; RESP 20; O2SAT 96
== END 2021-02-23 03:02 | disposition home or self-care (01) ==
PROVIDERS: Emergency Provider Student in an Organized Health Care Education/Training Program; PCP Registered Nurse
DX: J45.901 Unspecified asthma with (acute) exacerbation (principal); D72.10 Eosinophilia, unspecified; Z86.16 Personal history of COVID-19; Z20.822 Contact with and (suspected) exposure to COVID-19
CPT/HCPCS: 0241U; 36415; 71045; 71260; 80053; 85025; 85379; 96374; 96375; 99284; J1200; J2405; J2930; Q9967

== ENCOUNTER 2021-03-18 08:09 | Outpatient (REF) | payer MEDICAID, SELFPAY ==
[2021-03-19 11:49] LABS: BV Int Neg Control Negative (Negative); BV Int Pos Control Positive (Positive)
== END 2021-03-18 08:10 | disposition home or self-care (01) ==
LOC: HO.LAB 08:09
PROVIDERS: PCP Registered Nurse; Visit Provider Advanced Practice Midwife
DX: N89.8 Other specified noninflammatory disorders of vagina (principal); N90.89 Other specified noninflammatory disorders of vulva and perineum; Z20.2 Contact with and (suspected) exposure to infections with a predominantly sexual mode of transmission; F17.210 Nicotine dependence, cigarettes, uncomplicated; Z88.6 Allergy status to analgesic agent; Z88.8 Allergy status to other drugs, medicaments and biological substances
CPT/HCPCS: 87480; 87510; 87660; 99212

== ENCOUNTER 2021-03-25 11:26 | Outpatient (REF) | payer MEDICAID, SELFPAY ==
--- NOTE | ~2021-03-25 | US_ITS ---
EXAMINATION: US ABDOMEN LIMITED CLINICAL INFORMATION: Abnormal levels of serum enzymes. COMPARISON: CT abdomen and pelvis 07/02/2020. TECHNIQUE: Real-time imaging of the right upper quadrant abdominal viscera. FINDINGS: PANCREAS: Normal. LIVER: The liver is normal in size. The liver contour is normal. No focal hepatic lesion. There is no intrahepatic biliary duct dilatation seen. GALLBLADDER: Normal. The gallbladder is physiologically distended without evidence of stones, sludge, polyps, wall thickening or pericholecystic fluid. COMMON BILE DUCT: Normal in caliber measuring 0.3 cm in diameter. RIGHT KIDNEY: Normal. No hydronephrosis. No renal calculi or focal parenchymal lesions. The kidney measures 9.2 cm in maximum dimension. FREE FLUID: None. US/US abdomen limited IMPRESSION: Unremarkable scan. No evidence for cholelithiasis or cholecystitis. No free fluid. Liver is felt to be within normal limits
== END 2021-03-25 11:27 | disposition home or self-care (01) ==
LOC: HO.US 11:26
PROVIDERS: PCP Registered Nurse; Visit Provider Registered Nurse
DX: R74.8 Abnormal levels of other serum enzymes (principal)
CPT/HCPCS: 76705

== ENCOUNTER 2021-06-07 14:10 | Emergency (ER) | payer OTHER, MEDICAID, SELFPAY ==
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
[2021-06-07 14:43] VITALS: BP 101/63; PULSE 102; RESP 16; TEMP 36.5; O2SAT 96; BMI 22.1
[2021-06-07] MEDS: Acetaminophen 325 MG TABLET 650 MG PO (14:56)
[2021-06-07 16:21] VITALS: BP 104/67; PULSE 88; RESP 18; TEMP 36.9; O2SAT 97
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
== END 2021-06-07 16:47 | disposition home or self-care (01) ==
PROVIDERS: Emergency Provider Emergency Medicine Emergency Medical Services; PCP Registered Nurse
DX: S46.912A Strain of unspecified muscle, fascia and tendon at shoulder and upper arm level, left arm, initial encounter (principal); M25.512 Pain in left shoulder; G44.309 Post-traumatic headache, unspecified, not intractable; V43.62XA Car passenger injured in collision with other type car in traffic accident, initial encounter; Y93.9 Activity, unspecified; Y92.410 Unspecified street and highway as the place of occurrence of the external cause; Y99.9 Unspecified external cause status; Z79.899 Other long term (current) drug therapy
CPT/HCPCS: 73030; 73060; 99284

== ENCOUNTER → 2021-06-24 10:28 | Outpatient (BNVA) | payer MEDICAID, SELFPAY | PROVIDERS: PCP Registered Nurse; Visit Provider Physician Assistant | DX: M75.22 Bicipital tendinitis, left shoulder (principal) | CPT/HCPCS: 20610; 99202; J1040 ==

== ENCOUNTER → 2021-08-05 09:42 | Outpatient (BNVA) | payer MEDICAID, SELFPAY | PROVIDERS: PCP Registered Nurse; Visit Provider Physician Assistant | DX: M75.22 Bicipital tendinitis, left shoulder (principal) | CPT/HCPCS: 99212 ==

== ENCOUNTER 2021-10-26 16:01 | Emergency (ER) | payer MEDICAID, SELFPAY ==
--- NOTE | ~2021-10-26 | US_ITS ---
EXAMINATION: US PELVIS CLINICAL INFORMATION: Left-sided pelvic pain COMPARISON: CT abdomen pelvis 07/02/2020 TECHNIQUE: Ultrasound of the pelvis is performed using both transabdominal and transvaginal transducers along with Doppler. Transvaginal imaging is performed due to inadequate visualization transabdominally. FINDINGS: Uterus: The uterus not seen and has apparently been removed Adnexa: Only the left ovary is seen. The right is not.. There is normal color flow to the left adnexa. There is no ovarian torsion. No free fluid is seen Left ovary measures 5.8 x 4.5 x 3.8 cm for a volume of 52 mL which includes 2 complex cysts measuring 2.8 x 2.4 x 2.7 cm and 3.3 x 2.7 x 2.8 cm. cm. At the time of the prior CT scan, a septated 4.8 x 4.7 x 5.0 cm cyst was seen. US/US pelvic ovarian doppler IMPRESSION: Multiple complex left ovarian cysts, the largest 3.3 cm. Follow-up study in 3 months is recommended.
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
[2021-10-26 16:20] VITALS: BP 112/68; PULSE 79; RESP 18; TEMP 36.7; O2SAT 99; BMI 21.2
[2021-10-26 18:02] LABS: MANUAL DIFF FLAG NO
[2021-10-26 18:03] LABS: Basophils Absolute Auto 0.1 X10*3/uL (0.0-0.2); Basophils Percent Auto 0.6 % (0-2); Eosinophils Absolute Auto 0.6 X10*3/uL (0.0-0.4); Eosinophils Percent Auto 6.4 % (0-4); Hemoglobin 12.3 g/dl (12.0-16.0); Imm Gran Abs Auto 0.03 X10*3/uL (0.00-0.03); Imm Gran Pct Auto 0.3 % (0.0-0.4); Lymphocytes Absolute Auto 2.5 X10*3/uL (1.2-4.9); Lymphocytes Percent Auto 29.2 % (20-40); Mean Corpuscular HGB Conc 31.5 g/dl (31.0-35.0); Mean Corpuscular Hemoglobin 26.2 pg (27.0-33.0); Mean Corpuscular Volume 83.2 fL (80.0-98.0); Mean Platelet Volume 9.3 fL (9.4-12.3); Monocytes Absolute Auto 0.5 X10*3/uL (0.1-1.2); Monocytes Percent Auto 5.7 % (2-11); Neutrophils Percent Auto 57.8 % (45-73); Platelet Count 284 X10*3/uL (160-400); Red Blood Count 4.69 X10*6/uL (4.20-5.50); Red Cell Distribution Width 12.9 % (11.0-16.0); White Blood Count 8.7 X10*3/uL (4.8-10.8)
[2021-10-26 18:24] LABS: Alanine Aminotransferase 10 U/L (0-31); Alkaline Phosphatase 76 U/L (39-117); Anion Gap 11 (12-20); Aspartate Amino Transferase 15 U/L (5-31); Bilirubin Total 0.2 mg/dL (0.0-1.0); Blood Urea Nitrogen 13 mg/dL (9-16); Calcium 9.1 mg/dL (8.4-10.2); Carbon Dioxide 27 mmol/L (22-29); Chloride 105 mmol/L (96-108); Creatinine Clr Calc Pharmacy 72.3; Estimated Glomerular Filt Rate > 60; Glucose Random 79 mg/dL (60-115); Potassium 3.9 mmol/L (3.3-5.1); Sodium 139 mmol/L (135-145); Total Protein 6.9 g/dL (6.5-8.0)
[2021-10-27 07:29] VITALS: BP 109/63; PULSE 80; RESP 16; TEMP 36.6; O2SAT 99
--- NOTE | 2021-10-27 07:40 | ED.ABDPAIN ---
HPI - Abdominal Pain General Chief Complaint: Abdominal Pain Stated Complaint: Ovarian pain Time Seen by Provider: 10/26/21 17:18 Source: patient Mode of arrival: ambulatory Limitations: no limitations History of Present Illness MD elicited complaint: abdominal pain Pertinent past history: other (ovarian cyst) Onset (ago): day(s) (2) Pain Consistency: constant Location: LLQ Severity: mild Quality: aching Radiation: none Migration to: no migration Exacerbating factors: movement Relieving factors: nothing Context: history of similar episodes (montly ovarian pain) Associated symptoms: denies other symptoms Treatments prior to arrival: other (tylenol yesterday no relief) Related Data Home Medications Medication Instructions Recorded Confirmed albuterol sulfate 90 mcg/actuation 2 puff PO Q6H PRN dyspnea 03/18/21 aerosol inhaler (ProAir HFA) Previous Rx's Medication Instructions Recorded naproxen 500 mg tablet (Naprosyn) 500 mg PO BID #20 tabs 07/02/20 azithromycin 250 mg tablet See Rx Instructions PO .COMPLEX #6 01/29/21 (Zithromax) tabs benzonatate 100 mg capsule 100 mg PO TID PRN cough #10 caps 02/23/21 prednisone 20 mg tablet 40 mg PO DAILY 4 days #8 tabs 02/23/21 fluconazole 150 mg tablet 150 mg PO ONCE PRN personal 1 day 03/18/21 (Diflucan) #1 tab metronidazole 0.75 % vaginal gel 1 appful vaginal BEDTIME 5 days 03/20/21 (Metrogel Vaginal) #70 grams fluconazole 150 mg tablet 150 mg PO DAILY 1 dose #1 tab 05/04/21 (Diflucan) ibuprofen 600 mg tablet 600 mg PO Q6H PRN pain #20 tabs 06/07/21 hydrocodone 5 mg-acetaminophen 325 1 tab PO Q6H PRN pain #10 tabs 10/27/21 mg tablet ondansetron 4 mg disintegrating 4 mg PO Q8H PRN nausea and 10/27/21 tablet vomiting #20 tabs Allergies Allergy/AdvReac Type Severity Reaction Status Date / Time morphine [MORPHINE] Allergy Unknown HIVES Verified 08/05/21 09:48 naproxen Allergy Unknown Verified 08/05/21 09:48 Review of Systems Review of Systems Constitutional : No Weight loss, No Fever, No Chills ENT/Mouth : No sore throat, No Rhinorrhea Eyes: No Swelling, No Redness Cardiovascular : No Chest Pain, No SOB, NoEdema Respiratory : No Cough, No Sputum, No Wheezing Gastrointestinal : no Nausea,no Vomiting,no Diarrhea, positive abdominal Pain, No Hematochezia, No Melena Genitourinary : No Dysuria, No Urinary Frequency, No Hematuria, No Urgency Musculoskeletal : No joint pain, No Myalgias, No Joint Swelling Skin : No Skin Lesions, No rash Neuro : No Weakness, No Numbness, No Dizziness, No Headache Psych : No Anxiety/Panic, No Depression Heme/Lymph: No Bruising, No Lymphadenopathy Endocrine : No Polyuria, No Polydipsia All other systems reviewed and are negative. [facility] Past Medical History Attestation statement: The following information was validated with the patient. 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 Oriented X3. No acute distress. Eyes: Pupils equal, round and reactive to light. ENT: Pharynx normal. Neck: Normal inspection. Neck supple. CVS: Normal heart rate and rhythm. Pulses normal. Respiratory: No respiratory distress. Breath sounds normal. Abdomen: Soft and mild LLQ pain no rebound or guarding Skin: Skin warm and dry. Normal skin color. Normal skin turgor. Extremities: No lower extremity edema. No calf ttp Neuro: Oriented X 3. No motor deficit. No sensory deficit. MDM - Abdominal Pain MDM Narrative Medical decision making narrative: 40 yo female with 2 days of LLQ pain hx of ovarian cysts hx of same pain monthly - no sigs of torsion on US, no rupture, VS and blood work stable. No other GI or symptoms. Has OB she can follow up with. Start on pain medications and refer for follow up. Abdominal exam no peritoneal signs Lab Data Result diagrams: 10/26/21 17:54 10/26/21 17:54 Labs: Lab Results 10/26/21 10/26/21 Range/Units 17:54 17:54 WBC 8.7 (4.8-10.8) X10*3/uL RBC 4.69 (4.20-5.50) X10*6/uL Hgb 12.3 (12.0-16.0) g/dl Hct 39.0 (37.0-47.0) % MCV 83.2 (80.0-98.0) fL MCH 26.2 L (27.0-33.0) pg MCHC 31.5 (31.0-35.0) g/dl RDW 12.9 (11.0-16.0) % Plt Count 284 (160-400) X10*3/uL MPV 9.3 L (9.4-12.3) fL Immature Gran % (Auto) 0.3 (0.0-0.4) % Neut % (Auto) 57.8 (45-73) % Lymph % (Auto) 29.2 (20-40) % [place] % (Auto) 5.7 (2-11) % Eos % (Auto) 6.4 H (0-4) % Baso % (Auto) 0.6 (0-2) % Lymph # (Auto) 2.5 (1.2-4.9) X10*3/uL [place] # (Auto) 0.5 (0.1-1.2) X10*3/uL Eos # (Auto) 0.6 H (0.0-0.4) X10*3/uL Baso # (Auto) 0.1 (0.0-0.2) X10*3/uL Abs Immat Gran (auto) 0.03 (0.00-0.03) X10*3/uL Absolute Neuts (auto) 5.0 (2.0-8.3) x10*3/uL Absolute Nucleated RBC 0.000 (0.0-0.012) X10*3/uL Nucleated RBC % (auto) 0.0 (0.0-0.2) /100WBC Sodium 139 (135-145) mmol/L Potassium 3.9 (3.3-5.1) mmol/L Chloride 105 (96-108) mmol/L Carbon Dioxide 27 (22-29) mmol/L Anion Gap 11 L (12-20) BUN 13 (9-16) mg/dL Creatinine 0.72 (0.5-1.4) mg/dL Estim Creat Clear Calc 72.3 Estimated GFR > 60 Random Glucose 79 (60-115) mg/dL Calcium 9.1 (8.4-10.2) mg/dL Total Bilirubin 0.2 (0.0-1.0) mg/dL AST 15 (5-31) U/L ALT 10 (0-31) U/L Alkaline Phosphatase 76 (39-117) U/L Total Protein 6.9 (6.5-8.0) g/dL Albumin 4.0 (3.5-5.0) g/dL Discharge Plan Discharge Clinical Impression: Ovarian cyst Qualifiers: Laterality: left Qualified Code(s): N83.202 - Unspecified ovarian cyst, left side Patient Disposition: Home, Self-Care Instructions: Ovarian Cyst (ED) Additional Instructions: return to ED for any worsening symptoms or concerns RECOMENDACIONES: ?tero: El ?tero no se ve y aparentemente molina sido extirpado. Anexos: Solo se ve el ovario junie. El derecho no es.. Hay color normal fluye hacia el anexo junie. No hay torsi?n ov?cony. No hay l?quido suni visto El ovario junie mide 5,8 x 4,5 x 3,8 cm para un volumen de 52 mL que incluye 2 quistes complejos de 2,8 x 2,4 x 2,7 cm y 3,3 x 2,7 x 2,8 cm. cm. En el momento de la tomograf?a computarizada anterior, un tabique de 4,8 x 4,7 x Se observ? un quiste de 5,0 cm. N.? DE PEDIDO: [id number] Doppler p?lvico-ov?rico EE. UU./EE. UU. IMPRESI?N: M?ltiples quistes complejos de ovario junie, el mayor de 3,3 cm. Hacer un seguimiento Se recomienda estudiar en 3 meses. Prescriptions: New hydrocodone-acetaminophen 5-325 mg tablet 1 tab PO Q6H PRN (Reason: pain) Qty: 10 0RF Rx Instructions: partial fill okay; Partial Fill upon patient request. ondansetron 4 mg tablet,disintegrating 4 mg PO Q8H PRN (Reason: nausea and vomiting) Qty: 20 0RF No Action metronidazole [Metrogel Vaginal] 0.75 % gel 1 appful vaginal BEDTIME 5 Days Qty: 70 0RF fluconazole [Diflucan] 150 mg tablet 150 mg PO DAILY Qty: 1 0RF Rx Instructions: administer on day 1 of therapy naproxen [Naprosyn] 500 mg tablet 500 mg PO BID Qty: 20 0RF benzonatate 100 mg capsule 100 mg PO TID PRN (Reason: cough) Qty: 10 0RF prednisone 20 mg tablet 40 mg PO DAILY 4 Days Qty: 8 0RF ibuprofen 600 mg tablet 600 mg PO Q6H PRN (Reason: pain) Qty: 20 0RF azithromycin [Zithromax] 250 mg tablet See Rx Instructions .ROUTE .COMPLEX Qty: 6 0RF Rx Instructions: take 500 mg today (day 1), then 250 mg for 4 days (days 2-5) albuterol sulfate [ProAir HFA] 90 mcg/actuation HFA aerosol inhaler 2 puff PO Q6H PRN (Reason: dyspnea) fluconazole [Diflucan] 150 mg tablet 150 mg PO ONCE PRN (Reason: personal) 1 Days Qty: 1 0RF Stand Alone Forms: Work/School Release Print Language: [place]
--- NOTE | 2021-10-27 08:12 | PC.NURSE ---
ATTEMPTING TO MEDICATE PATIENT AWAITING SOLAR SALES AMBASSADOR TO EXPLAIN MEDICATIONS RESULTING IN DELAY OF MEDICATION/DOCUMENTING
[2021-10-27] MEDS: Ibuprofen 400 MG TABLET PO (08:17)
[2021-10-27] MEDS: Ondansetron ODT 4 MG TAB.RAPDIS TRANSLINGU (08:17)
[2021-10-27] MEDS: HYDROcodone Bit/Acetam 5/325 TABLET 1 TAB PO (08:17)
== END 2021-10-27 09:25 | disposition home or self-care (01) ==
PROVIDERS: Emergency Provider Emergency Medicine; PCP Registered Nurse
DX: N83.202 Unspecified ovarian cyst, left side (principal); R10.32 Left lower quadrant pain; F17.200 Nicotine dependence, unspecified, uncomplicated
CPT/HCPCS: 36415; 76830; 76856; 80053; 85025; 93975; 99283; 99284

== ENCOUNTER 2021-11-16 12:19 | Outpatient (REF) | payer MEDICAID, SELFPAY ==
[2021-11-17 09:04] LABS: BV Int Neg Control Negative (Negative); BV Int Pos Control Positive (Positive)
== END 2021-11-16 12:20 | disposition home or self-care (01) ==
LOC: HO.LAB 12:19
PROVIDERS: Visit Provider Advanced Practice Midwife
DX: N89.8 Other specified noninflammatory disorders of vagina (principal)
CPT/HCPCS: 87480; 87510; 87660; 99212

== ENCOUNTER 2022-01-05 09:56 | Outpatient (REF) | payer MEDICAID, SELFPAY ==
[2022-01-06 10:13] LABS: BV Int Neg Control Negative (Negative); BV Int Pos Control Positive (Positive)
== END 2022-01-05 09:57 | disposition home or self-care (01) ==
LOC: HO.LNP 09:56
PROVIDERS: Visit Provider Advanced Practice Midwife
DX: N89.8 Other specified noninflammatory disorders of vagina (principal); L28.0 Lichen simplex chronicus; R21 Rash and other nonspecific skin eruption
CPT/HCPCS: 87480; 87510; 87660; 99212

== ENCOUNTER → 2022-09-02 09:58 | Outpatient (REF) | payer MEDICAID, SELFPAY ==
--- NOTE | 2022-09-02 10:02 | CA_ITS ---
Transthoracic Echocardiogram Patient (Last, First, Middle): Esha Antoine, Gender: Female Date of : 1980 Age: 41 Procedure Date: 09/02/2022 Procedure Type: Transthoracic Echocardiogram Location: OP Height: 149.86 cm Weight: 47.63 kg BSA: 1.40 m2 Heart Rate: bpm BP: 108 / 62 mmHg Duty Engineer: SUSHIL Referring MD: Karlee Hernandez MD Symptoms: R06.02 SOB U09.9 POST COVID SYNDROME Study Quality: Adequate ECG Rhythm: Sinus Conclusions: - The left ventricular systolic function is normal. The visually estimated ejection fraction is between 55-60%. - No obvious valvular pathology seen on this study. Findings Left Ventricle Normal left ventricular cavity size. There is normal left ventricular wall thickness. The left ventricular systolic function is normal. The visually estimated ejection fraction is between 55-60%. There is no evidence of regional wall motion abnormalities. Diastolic function is normal for age. LV peak GLS -18.6% (normal). Right Ventricle Normal right ventricular cavity size and systolic function. Atria Both atria are normal in size. Aortic Valve The aortic valve was not well visualized. The aortic valve structure and function is likely normal. There is no aortic valve stenosis. There is no aortic valve regurgitation. Mitral Valve The mitral valve appears normal. There is trace mitral valve regurgitation. There is no mitral valve stenosis. Pulmonic Valve The pulmonic valve is likely normal. Tricuspid Valve There is trace tricuspid valve regurgitation. There is no evidence of pulmonary hypertension. Great Vessels The asc aorta and aortic arch are normal in size. Venous The inferior vena cava is normal in size and collapses greater than 50% with inspiration. Pericardium/Pleural There is no evidence of pericardial effusion. Prior Study Comparison No prior study available for comparison. Recommendations, Care & Conclusions No obvious valvular pathology seen on this study. Measurements 2D Linear Measurements IVSd: 0.64 0.6-0.9/0.6-1.0 cm LVIDd: 3.56 3.9-5.3/4.2-5.9 cm LVIDd Index: 2.54 2.4-3.2/2.2-3.1 cm/m2 LVIDs: 2.67 2.0-3.6 cm LVPWd: 0.72 0.7-1.1 cm LA Diam: 2.10 2.7-3.8/3.0-4.0 cm LAIDs Index: 1.50 1.5-2.3 cm/m2 LV Mass: 76.48 67-162/88-224 g LV Mass Index: 54.63 43-95/49-115 g/m2 LVOT Diam: 1.60 3.0+(-)1.3 cm 2D Systolic Function EF 4C: 56.90 >55% EF 2C: 68.60 >55% EF BiP: 63.00 >55% Mitral Valve MV Pk E: 0.78 MV PK A: 0.60 MV Decel Time: 221.00 E/A: 1.30 E'Lateral: 15.30 E'Medial: 11.60 E/E' Med: 6.70 E/E' Lat: 5.10 PHT: 65.00 MVA PHT: 3.38 Decel [place]: 3.52 Aortic Valve AoV Pk Tima: 1.30 AoV Mn Tima: 0.88 AoV VTI: 0.26 AoV Pk Grad: 7.00 Aov Mn Grad: 3.00 RANDY Cont.VTI: 1.46 LVOT LVOT Pk Tima: 0.95 LVOT Mn Tima: 0.66 LVOT VTI: 0.19 LVOT Pk Grad: 4.00 LVOT Mn Grad: 2.00 LVOT Diam: 1.60 LVOT Area: 2.01 Diastolic Function MV Pk E: 0.78 MV Pk A: 0.60 E/A: 1.30 E'Medial: 11.60 E/E' Med: 6.70 E' Laterial: 15.30 E/E' Lat: 5.10 Right Ventricle TAPSE (mm): 18.60 TVS' Tima: 11.50 Tricuspid Valve TR Pk Tima: 1.68 TR Pk Grad: 11.00 RA Press: 3.00 RVSP: 14.00 Great Vessels Aorta Sinus of Valsalva: 2.22 2.0-3.5 cm Ao Asc: 2.10 2.1-3.4 cm Ao Arch: 2.00 Updated in Other Vendor System with Status of Final Freddy Holman MD electronically signed on 09/03/2022 12:48:29 PM with status of Final
== END ==
LOC: HO.CARD 09:58
PROVIDERS: PCP Registered Nurse; Visit Provider General Practice
DX: R06.02 Shortness of breath (principal); U09.9 Post COVID-19 condition, unspecified
CPT/HCPCS: 93306; 93356

== ENCOUNTER 2022-10-04 13:26 | Outpatient (REF) | payer MEDICAID, SELFPAY ==
--- NOTE | ~2022-10-04 | MM_ITS ---
EXAMINATION: MM DIAGNOSTIC DIGITAL BREAST TOMOSYNTHESIS, BILATERAL US DIAGNOSTIC ULTRASOUND BREAST, BILATERAL CLINICAL INFORMATION: 41-year-old with bilateral mastodynia lateral breast. Prior history benign left stereotactic biopsy 02/23/2016 (sclerosing adenosis with associated microcalcifications and apocrine metaplasia). No known family history breast cancer. The lifetime risk of breast cancer based on the Tyrer-Cuzick Model is 6%. COMPARISON: Mammography: 08/17/2018, 08/15/2017 TECHNIQUE: Digital breast tomosynthesis is performed in both the craniocaudal and mediolateral oblique views along with computer-aided detection (CAD). Synthesized 2D images are generated from the tomosynthesis. Additional magnification views left breast are obtained in the CC x2, LM, and ML x2 projections. Ultrasound bilateral breasts is targeted to the areas of clinical concern using grayscale imaging and color Doppler without and with harmonics. Patient is able to point areas of recent mastodynia at time of imaging. FINDINGS: Mammography: The breasts are heterogeneously dense, which may obscure small masses (ACR BI-RADS breast composition Category c). Parenchymal pattern is similar to prior exams. There is no developing density, significant mass, or architectural abnormality. There is a biopsy clip marker again seen central posterior 9:00 left breast. There are multiple bilateral calcifications, much more numerous on left. Additional magnification views show no significant change from prior diagnostic exam. No abnormal calcifications. The axilla are unremarkable. There is a dermal lesion overlying the lower inner left breast. Otherwise, no skin thickening. No coarsening of the [place]'s ligaments. Ultrasound: Ultrasound bilateral breasts demonstrates no cystic or solid mass, architectural abnormality, or focal duct ectasia. There is no skin thickening or edema tracking in soft tissue planes. No hyperemia. Management: Results are discussed with the patient at time of visit, using an structural steel shop supervisor. MM/MM tomosynthesis diagnostic BI IMPRESSION: -No mammographic evidence of malignancy or inflammatory changes. -Unremarkable bilateral breast ultrasound. ASSESSMENT: BI-RADS 2: Benign RECOMMENDATION: Routine annual mammography screening. This patient's information was entered into a reminder system with a target due date for their next mammogram.
== END 2022-10-04 13:27 | disposition home or self-care (01) ==
LOC: HO.MAMMO 13:26
PROVIDERS: PCP Registered Nurse; Visit Provider Registered Nurse
DX: N64.4 Mastodynia (principal)
CPT/HCPCS: 76642; 77062; 77066

== ENCOUNTER 2022-12-01 20:15 | Emergency (ER) | payer MEDICAID, SELFPAY ==
--- NOTE | ~2022-12-01 | CT_ITS ---
EXAMINATION: CT ABDOMEN AND PELVIS WITHOUT CONTRAST CLINICAL INFORMATION: Left flank pain, rule out ureterolithiasis COMPARISON: 07/02/2020 TECHNIQUE: Multidetector volumetric imaging was performed from the superior aspect of the liver through the pubic symphysis. Sagittal and coronal reformatted images were obtained on the technologist's workstation. This CT examination was performed using dose optimization techniques as appropriate, variously including the following: *Automated exposure control *Adjustment of mA and/or kV according to patient size (this includes techniques or standardized protocols for targeted exams where dose is matched to indication/reason for exam; i.e. extremities or head) *Use of iterative reconstruction technique DLP: 321 mGy-cm FINDINGS: LUNG BASES: The visualized lung bases are unremarkable. LIVER, GALLBLADDER, AND BILIARY TREE: The liver is normal in size, shape, and attenuation. No focal hepatic lesion or biliary ductal dilatation is identified on this noncontrast exam. Gallbladder appears partially contracted. PANCREAS: Unremarkable. SPLEEN: Unremarkable. ADRENAL GLANDS: Unremarkable. KIDNEYS AND URETERS: No hydronephrosis or obstructing calculus identified bilaterally. BLADDER: Nearly empty and not well evaluated. GASTROINTESTINAL TRACT: No evidence of bowel obstruction or significant wall thickening. The appendix is unremarkable. No free fluid or free air is seen. ABDOMINAL WALL: No significant hernia is appreciated. LYMPH NODES: Normal. VASCULAR: Unremarkable. PELVIC VISCERA: There is a left adnexal cyst measuring 3.5 cm in diameter, decreased in size from prior. Findings are overwhelmingly likely to represent a benign functional cyst. No specific followup imaging recommended. Status post hysterectomy. OSSEOUS STRUCTURES: Unremarkable. CT/CT abdomen pelvis wo IV con IMPRESSION: No acute findings in the abdomen/pelvis. No hydronephrosis or obstructing calculus identified.
[2022-12-01 20:33] VITALS: BP 119/71; PULSE 85; RESP 16; TEMP 36.7; O2SAT 98; BMI 28.8
--- NOTE | 2022-12-01 20:36 | ED.GENADULT ---
HPI - General Adult General Chief complaint: General Medical Stated complaint: lower abd pain Time Seen by Provider: 12/01/22 23:23 Source: patient Mode of arrival: ambulatory Limitations: no limitations History of Present Illness HPI narrative: 41-year-old female presents with lower abdominal / pelvic pain, urinary frequency, urgency, hesitancy with flank pain. Symptoms started 2 days ago. The symptoms are moderate. The pain can radiate to the left flank. There is no clear relieving or exacerbating features. She has had no fevers or chills. She denies any nausea or vomiting. She denies any vaginal bleeding or discharge. She denies any diarrhea or constipation. Patient has had similar symptoms several months ago. Related Data Home Medications Medication Instructions Recorded Confirmed albuterol sulfate 90 mcg/actuation 2 puff PO Q6H PRN dyspnea 03/18/21 aerosol inhaler (ProAir HFA) Previous Rx's Medication Instructions Recorded ibuprofen 600 mg tablet 600 mg PO Q6H PRN pain #20 tabs 06/07/21 hydrocodone 5 mg-acetaminophen 325 1 tab PO Q6H PRN pain #10 tabs 10/27/21 mg tablet betamethasone valerate 0.1 % 1 appl topical .twice weekly 01/05/22 topical ointment chronic skin irritation 4 weeks #45 grams loratadine 10 mg capsule 10 mg PO DAILY PRN allergic 01/05/22 symptoms #30 caps phenazopyridine 200 mg tablet 200 mg PO TID 6 doses #6 tabs 12/02/22 (Pyridium) Allergies Allergy/AdvReac Type Severity Reaction Status Date / Time morphine [MORPHINE] Allergy Unknown HIVES Verified 01/05/22 09:36 naproxen Allergy Nausea Verified 01/05/22 09:36 Review of Systems Review of Systems: CONSTITUTIONAL: Denies weight loss, fever and chills. HEENT: Denies changes in vision and hearing. RESPIRATORY: Denies SOB and cough. CV: Denies palpitations no CP. GI: + abdominal pain, -nausea, vomiting and diarrhea. : + dysuria and urinary frequency. MSK: Denies myalgia and joint pain. SKIN: Denies rash and pruritus. NEUROLOGICAL: Denies headache and syncope. PSYCHIATRIC: Denies recent changes in mood. Denies anxiety and depression. All other ROS are negative unless in HPI PMFSH Past Medical History Medical History Abnormal Pap smear of cervix Asthma COVID-19 History of anxiety Lichen simplex chronicus Surgical History History of total abdominal hysterectomy Hx of section Family History Family History Maternal Grandfather Colon cancer Social History Social History Household Members: Spouse and Children Housing: House Alcohol intake: current Alcohol intake frequency: holidays/special occasions only Patient Tobacco Use Status: Former Tobacco user Tobacco use type: Cigarette Cigarettes Per Day: 4 Smoked in Last 30 Days: No Use of substances other than those prescribed or required for medical reasons: No Advance Directives: No Advance Directives Information Provided: Yes Patient : No Current occupational status: employed 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 Sexual orientation: Straight/Heterosexual Gender identity: Female Physical Exam ED Vital Signs: Vital Signs - 24 hr 12/01/22 20:33 12/01/22 23:42 Temperature 98.0 F 97.8 F Pulse Rate 85 73 Respiratory Rate 16 15 Blood Pressure 119/71 104/62 Pulse Oximetry 98 97 Oxygen Delivery Method Room Air Room Air BMI result Body Mass Index 28.8 GEN: Well developed, no acute distress, alert, oriented HEENT: Normocephalic, atraumatic, normal external ears, nose appears normal, no oropharyngeal edema or exudates Eyes: Normal to appearance Neck: Supple, no lymphadenopathy Respiratory: Talks in complete sentences, no respiratory distress, clear to auscultation bilaterally Cardiovascular: Regular rate and rhythm, no murmurs rubs or gallops Abdomen: Soft, Suprapubic tenderness, nondistended, no guarding, no rebound Back: No CVA tenderness Extremities: No clubbing cyanosis or edema Neurologic: No focal neurologic deficits, cranial nerves 2-12 intact, strength is 5/5 bilaterally Skin: No rash Course Course Course Narrative: RME- 41 year old female presents for evaluation of lower abdominal pain and urinary urgency. Plan for UA and Reevaluation(s) Reevaluation #1: the workup is complete. There is no evidence of urinary tract infection. There was hematuria. CT scan the abdomen pelvis did not identify kidney stone or other acute abnormality. At this point, I am suspecting patient may have a bladder irritation or a non infectious cystitis. Will start the patient on Pyridium. She will follow-up with her primary care provider on Tuesday or Tuesday for and no improvement in symptoms. She can return to the emergency department for any worsening or concerning symptoms. Time: 00:32 Medical Decision Making Medical Decision Making [facility] Narrative: 41-year-old female presents with suprapubic pain, radiating to left flank with tenderness in the suprapubic area. Exam and story are most consistent with urinary tract infection, pyelonephritis or renal colic. Given patient's age, doubt diverticulitis. Other differentials could include colitis, proctitis. Patient denies any vaginal bleeding or discharge. Some likely to be an STD or vaginal infection at this point. Obtain urinalysis to rule out infection. This is negative, would have a low threshold to image the abdomen with a CT scan Differential Diagnosis Differential Diagnoses: The differential diagnosis associated with the presentation includes ( see above) Dysuria Admission/Observation Consideration of admission/observation: Escalation of care including admission/observation considered Lab Data [facility] Lab Attestation statement: I reviewed the patient's lab results. Labs: Lab Results 12/01/22 12/01/22 Range/Units 20:59 20:59 Urine Color Yellow Urine Appearance Hazy Urine pH 6.5 (5.0-9.0) Ur Specific [place] >= 1.030 H (1.005-1.025) Urine Protein 100 (2+) H (Neg-Trace) mg/dL Urine Glucose (UA) Negative (Negative) mg/dL Urine Ketones Trace (Negative) mg/dL Urine Blood Large (3+) H (Negative) Urine Nitrite Negative (Negative) Ur Leukocyte Esterase Negative (Negative) Urine RBC >20 H (0-2) /HPF Urine WBC 0-5 (0-5) /HPF Ur Squamous Epith Cells 11-20 (0-2) /HPF Calcium Oxalate Crystal Present Urine Bacteria Trace (None Seen) Hyaline Casts 0-2 (0-2) /LPF Urine Test NEGATIVE (NEGATIVE) Independent Interpretation I performed an independent interpretation of an: CT Scan ( no acute findings of CT scan abdomen and pelvis) Radiology Impression Discussion of test interpretation with radiology: I have reviewed the radiologist's reading. Radiologist Impression: CT/CT abdomen pelvis wo IV con IMPRESSION: No acute findings in the abdomen/pelvis. No hydronephrosis or obstructing calculus identified. ? Dictated By: Bhaskar Williamson MD Signed By: <Electronically signed by Bhaskar Williamson MD in OV> 12/02/22 0012 Prescription Management I considered prescription management with: Pain Medication and Antibiotic Discharge Plan Discharge Clinical Impression: Suprapubic pain, Microscopic hematuria, Dysuria Patient Disposition: Home, Self-Care Instructions: Hematuria (ED), Dysuria (ED), Pelvic Pain (ED) Prescriptions: New phenazopyridine [Pyridium] 200 mg tablet 200 mg PO TID Qty: 6 0RF No Action ibuprofen 600 mg tablet 600 mg PO Q6H PRN (Reason: pain) Qty: 20 0RF hydrocodone-acetaminophen 5-325 mg tablet 1 tab PO Q6H PRN (Reason: pain) Qty: 10 0RF Rx Instructions: partial fill okay; Partial Fill upon patient request. albuterol sulfate [ProAir HFA] 90 mcg/actuation HFA aerosol inhaler 2 puff PO Q6H PRN (Reason: dyspnea) loratadine 10 mg capsule 10 mg PO DAILY PRN (Reason: allergic symptoms) Qty: 30 0RF Rx Instructions: take daily for up to a month for itching betamethasone valerate 0.1 % ointment 1 appl topical .twice weekly 28 Days Qty: 45 1RF Rx Instructions: apply a thin coat to the area twice a day for a week, then daily for a week at bedtime, then every other day for a week at bedtime, then twice a week at bedtime for 4wks Print Language: Italian
[2022-12-01 21:06] LABS: Appearance Urine Hazy; Color Urine Yellow; Glucose Urine UA Negative (Negative); Leukocyte Esterase Urine Negative (Negative); Nitrite Urine Negative (Negative); PH 6.5 (5.0-9.0); Specific Gravity - Urine >= 1.030 (1.005-1.025); UMIC TRIGGER UACC YES; UPreg QC Valid YES; Urine Blood Large (3+) (Negative); Urine Ketones Trace mg/dL (Negative); Urine Pregnancy NEGATIVE (NEGATIVE); Urine Protein 100 (2+) mg/dL (Neg-Trace)
[2022-12-01 21:19] LABS: Bacteria Urine Trace (None Seen); Calcium Oxalate Crystals Urine Present; Hyaline Casts Urine 0-2 /LPF (0-2); RBC Urine >20 /HPF (0-2); WBC Urine 0-5 /HPF (0-5)
[2022-12-01 23:42] VITALS: BP 104/62; PULSE 73; RESP 15; TEMP 36.6; O2SAT 97
[2022-12-02] MEDS: Phenazopyridine HCL 200 MG TABLET PO (00:52)
== END 2022-12-02 00:53 | disposition home or self-care (01) ==
PROVIDERS: Physician Assistant; Emergency Provider Emergency Medicine
DX: R10.10 Upper abdominal pain, unspecified (principal); R35.0 Frequency of micturition; R31.9 Hematuria, unspecified; R30.0 Dysuria; Z79.899 Other long term (current) drug therapy
CPT/HCPCS: 74176; 81001; 81025; 99284